=== PATIENT | male | born 1985 | race Caucasian/White ===

== ENCOUNTER 2017-09-09 08:44 | Emergency (ER) | payer BC, OTHER ==
[2017-09-09] MEDS ORDERED: Sodium Chloride 0.9% 10 ML Syringe FLUSH PRN (09:00)
[2017-09-09] MEDS ORDERED: Sodium Chloride 0.9% 2.5 ML Syringe FLUSH PRN (09:00)
[2017-09-09] MEDS ORDERED: Sodium Chloride 0.9% 1,000 ML IV ONE (09:00)
--- NOTE | 2017-09-09 09:09 | EDM.PDOC ---
ED HPI GENERAL MEDICAL PROBLEM - General Chief Complaint: Abdominal Pain Stated Complaint: LOWER ABD PAIN Time Seen by Provider: 09/09/17 08:59 Source of Information: Reports: Patient History Limitations: Reports: No Limitations - History of Present Illness INITIAL COMMENTS - FREE TEXT/NARRATIVE: History of present illness: []Patient developed right lower quadrant pain suddenly around 4 this morning. There is mild radiation into his groin and testicle. At 6:00 this morning became more severe and he broke out into a sweat. Pain now as a dull ache in the right lower quadrant. He denies any flank pain fevers, nausea, vomiting but notes mild loose stools and chills. Patient drank 4 ounces of red bull on his way to work this morning. Patient notes that pain is not related to any position as he has not been able to get comfortable Review of systems: As per history of present illness and below otherwise all systems reviewed and negative. Past medical history: As per history of present illness and as reviewed below otherwise noncontributory. Surgical history: As per history of present illness and as reviewed below otherwise noncontributory. Social history: No reported history of drug or alcohol abuse. Family history: As per history of present illness and as reviewed below otherwise noncontributory. Physical exam: General: Well developed, well nourished in NAD HEENT: Atraumatic, normocephalic, pupils reactive, negative for conjunctival pallor or scleral icterus, mucous membranes moist, throat clear, neck supple, nontender, trachea midline. Lungs: Clear to auscultation, breath sounds equal bilaterally, chest nontender. Heart: S1S2, regular, negative for clicks, rubs, or JVD. Abdomen: Soft, nondistended, nontender. Negative for masses or hepatosplenomegaly. Negative for costovertebral tenderness. Pelvis: Stable nontender. Genitourinary: Deferred. Rectal: Deferred. Extremities: Atraumatic, negative for cords or calf pain. Neurovascular unremarkable. Neuro: Awake, alert, oriented. Cranial nerves II through XII unremarkable. Cerebellum unremarkable. Motor and sensory unremarkable throughout. Exam nonfocal. Diagnostics: []WBC count is elevated at 19,000. Chemistries normal, UA shows 10-12 RBCs, CT shows 5 mm stone in distal right ureter with mild dilatation the collecting system. Therapeutics: []IV hydrated, Flomax Impression: []Right ureterolithiasis Plan: []Flomax, ibuprofen, increase fluids follow-up with primary care as needed Definitive disposition and diagnosis as appropriate pending reevaluation and review of above. Right Lower Abdominal Pain Score (Numeric/FACES): 4 - Related Data Allergies Allergy/AdvReac Type Severity Reaction Status Date / Time No Known Allergies Allergy Verified 09/09/17 08:56 Home Meds: Home Meds Tamsulosin HCl [Flomax] 0.4 mg PO DAILY #14 cap.er.24h 09/09/17 [Rx] ED ROS GENERAL - Review of Systems Review Of Systems: See Below (See history of present illness) ED EXAM, GI/ABD - Physical Exam Exam: See Below (See history of present illness) Course - Vital Signs Last Recorded V/S: Last Vital Signs Temp 97.7 F 09/09/17 10:27 Pulse 82 09/09/17 10:27 Resp 16 09/09/17 10:27 BP 130/69 09/09/17 10:27 Pulse Ox 97 09/09/17 10:27 - Orders/Labs/Meds Orders: Active Orders 24 hr Category Date Time Status NPO Now [Nothing per Oral Now Diet] [DIET] Diet 09/09/17 Lunch Active Abdomen Pelvis w Cont [CT] Stat Exams 09/09/17 09:34 Taken UA W/MICROSCOPIC [URIN] Stat Lab 09/09/17 10:30 Ordered Sodium Chloride 0.9% [Saline Flush] Med 09/09/17 09:00 Active 10 ml FLUSH ASDIRECTED PRN Sodium Chloride 0.9% [Saline Flush] Med 09/09/17 09:00 Active 2.5 ml FLUSH ASDIRECTED PRN Saline Lock Insert [OM.PC] Stat Oth 09/09/17 09:00 Ordered Medication Orders Sodium Chloride (Saline Flush) 10 ml FLUSH ASDIRECTED PRN PRN Reason: Keep Vein Open Sodium Chloride (Saline Flush) 2.5 ml FLUSH ASDIRECTED PRN PRN Reason: Keep Vein Open Labs: Laboratory Tests 09/09/17 09/09/17 09/09/17 Range/Units 09:09 09:09 10:30 WBC 19.36 H (4.0-11.0) K/uL RBC 5.81 (4.50-5.90) M/uL Hgb 18.6 H (13.0-17.0) g/dL Hct 50.9 H (38.0-50.0) % MCV 87.6 (80.0-98.0) fL MCH 32.0 (27.0-32.0) pg MCHC 36.5 (31.0-37.0) g/dL RDW Std Deviation 46.7 (28.0-62.0) fl RDW Coeff of Claudine 15 (11.0-15.0) % Plt Count 312 (150-400) K/uL MPV 9.20 (7.40-12.00) fL Add Manual Diff YES Neutrophils % (Manual) 78 (48.0-80.0) % Band Neutrophils % 3 % Lymphocytes % (Manual) 12 L (16.0-40.0) % Monocytes % (Manual) 7 (0.0-15.0) % Nucleated RBC % 0.0 /100WBC Absolute Seg Neuts 15.1 H (1.4-5.7) Band Neutrophils # 0.6 Lymphocytes # (Manual) 2.3 (0.6-2.4) Monocytes # (Manual) 1.4 H (0.0-0.8) Nucleated RBCs # 0 K/uL Sodium 136 (136-148) mmol/L Potassium 3.6 (3.5-5.1) mmol/L Chloride 99 (98-107) mmol/L Carbon Dioxide 27.0 (21.0-32.0) mmol/L BUN 15 (7.0-18.0) mg/dL Creatinine 1.3 (0.8-1.3) mg/dL Est Cr Clr Drug Dosing 88.49 mL/min Estimated GFR (MDRD) > 60.0 ml/min Glucose 110 H (74-106) mg/dL Calcium 9.7 (8.5-10.1) mg/dL Total Bilirubin 0.9 (0.2-1.0) mg/dL AST 33 (15-37) IU/L ALT 54 (14-63) IU/L Alkaline Phosphatase 111 (46-116) U/L Total Protein 8.8 H (6.4-8.2) g/dL Albumin 4.4 (3.4-5.0) g/dL Globulin 4.4 H (2.0-3.5) g/dL Albumin/Globulin Ratio 1.0 L (1.3-2.8) Lipase 111 (73-393) U/L Urine Color YELLOW Urine Appearance CLEAR Urine pH 6.0 (5.0-8.0) Ur Specific [place] 1.010 (1.001-1.035) Urine Protein NEGATIVE (NEGATIVE) mg/dL Urine Glucose (UA) NEGATIVE (NEGATIVE) mg/dL Urine Ketones TRACE H (NEGATIVE) mg/dL Urine Occult Blood LARGE H (NEGATIVE) Urine Nitrite NEGATIVE (NEGATIVE) Urine Bilirubin NEGATIVE (NEGATIVE) Urine Urobilinogen 0.2 (<2.0) EU/dL Ur Leukocyte Esterase NEGATIVE (NEGATIVE) Urine RBC 10-12 (0-2/HPF) Urine WBC 0-2 (0-5/HPF) Ur Epithelial Cells RARE (NONE-FEW) Urine Bacteria RARE (NEGATIVE) Meds: Medications Generic Name Dose Route Start Last Admin Trade Name Freq PRN Reason Stop Dose Admin Sodium Chloride 10 ml 09/09/17 09:00 Saline Flush FLUSH ASDIRECTED PRN Keep Vein Open Sodium Chloride 2.5 ml 09/09/17 09:00 Saline Flush FLUSH ASDIRECTED PRN Keep Vein Open Discontinued Medications Generic Name Dose Route Start Last Admin Trade Name Freq PRN Reason Stop Dose Admin Sodium Chloride 1,000 mls @ 999 mls/hr 09/09/17 09:00 09/09/17 09:12 Normal Saline IV 09/09/17 10:00 999 mls/hr .Bolus ONE Administration Iopamidol 100 ml 09/09/17 10:21 09/09/17 10:22 Isovue Multipack-370 (76%) IVPUSH 09/09/17 10:22 100 ml ONETIME STA Administration Tamsulosin HCl 0.4 mg 09/09/17 11:04 Flomax PO 09/09/17 11:05 ONETIME ONE Departure - Departure Time of Disposition: 11:08 Disposition: Home, Self-Care 01 Condition: Good Clinical Impression: Ureterolithiasis - Discharge Information Prescriptions: Tamsulosin HCl [Flomax] 0.4 mg PO DAILY #14 cap.er.24h Referrals: PCP,None [Primary Care Provider] - Forms: ED Department Discharge Additional Instructions: The following information is given to patients seen in the emergency department who are being discharged to home. This information is to outline your options for follow-up care. We provide all patients seen in our emergency department with a follow-up referral. The need for follow-up, as well as the timing and circumstances, are variable depending upon the specifics of your emergency department visit. If you don't have a primary care physician on staff, we will provide you with a referral. We always advise you to contact your personal physician following an emergency department visit to inform them of the circumstance of the visit and for follow-up with them and/or the need for any referrals to a consulting specialist. The emergency department will also refer you to a specialist when appropriate. This referral assures that you have the opportunity for follow-up care with a specialist. All of these measure are taken in an effort to provide you with optimal care, which includes your follow-up. Under all circumstances we always encourage you to contact your private physician who remains a resource for coordinating your care. When calling for follow-up care, please make the office aware that this follow-up is from your recent emergency room visit. If for any reason you are refused follow-up, please contact the [facility] Emergency Department at and asked to speak to the emergency department charge nurse. Increase fluids, ibuprofen for pain, Flomax as directed and return if symptoms worsen or change follow-up with primary care as needed. [facility] [address] [place] [id number] - My Orders Last 24 Hours: My Active Orders 09/09/17 09:00 Sodium Chloride 0.9% [Saline Flush] 10 ml FLUSH ASDIRECTED PRN Sodium Chloride 0.9% [Saline Flush] 2.5 ml FLUSH ASDIRECTED PRN Saline Lock Insert [OM.PC] Stat 09/09/17 09:34 Abdomen Pelvis w Cont [CT] Stat 09/09/17 10:30 UA W/MICROSCOPIC [URIN] Stat 09/09/17 Lunch NPO Now [Nothing per Oral Now Diet] [DIET] - Assessment/Plan Last 24 Hours: My Active Orders 09/09/17 09:00 Sodium Chloride 0.9% [Saline Flush] 10 ml FLUSH ASDIRECTED PRN Sodium Chloride 0.9% [Saline Flush] 2.5 ml FLUSH ASDIRECTED PRN Saline Lock Insert [OM.PC] Stat 09/09/17 09:34 Abdomen Pelvis w Cont [CT] Stat 09/09/17 10:30 UA W/MICROSCOPIC [URIN] Stat 09/09/17 Lunch NPO Now [Nothing per Oral Now Diet] [DIET]
[2017-09-09 09:43] LABS: CHLORIDE,CL 99 mmol/L (98-107); SODIUM,NA 136 mmol/L (136-148)
[2017-09-09] MEDS ORDERED: Iopamidol 755 MG/ML 500 ML Multipack Bottle IVPUSH STA (10:21)
[2017-09-09] MEDS ORDERED: Tamsulosin 0.4 MG Cap.ER PO ONE (11:04)
--- NOTE | 2017-09-10 17:23 | CT ---
EXAM DATE: 09/09/17 PATIENT'S AGE: 32 Patient: YONG LATHAM Facility: [place], [place] Site . Site : 1985 Study: CT Abdomen/Pelvis [id number]/15/2018 10:20:43 AM Ordering Physician: Celestine Cagle Final Report: INDICATION: Right lower quadrant pain. TECHNIQUE: Volumetric CT acquisition of the abdomen and pelvis following the administration of 100 mL Isovue-370 intravenous contrast. Multiplanar reconstruction. FINDINGS: Bandlike atelectasis at the lung bases. The liver, spleen, pancreas, adrenal glands, gallbladder, and biliary tract are unremarkable. Kidneys normal in size , shape, and position. Both kidneys are functioning. No renal masses or focal parenchymal abnormalities. Mild dilatation of the right renal collecting system and right ureter due to a 5 millimeter stone in the distal right ureter. This stone is approximately 3 centimeters from the ureterovesical junction. No left- sided hydronephrosis or left-sided stones. Abdominal aorta normal in caliber. No paraaortic or retrocrural lymphadenopathy. Normal bowel gas pattern. No inflammatory changes involving the bowel. Normal appendix. The urinary bladder has a smooth contour. The fat planes surrounding the bladder, rectum, and prostate are maintained. No free fluid in the abdomen or pelvis. No acute bony abnormality. IMPRESSION 5 millimeter stone in the distal right ureter causes mild dilatation of the right ureter and intrarenal collecting system. Please note that all CT scans at this facility use dose modulation, iterative reconstruction, and/or weight-based dosing when appropriate to reduce radiation dose to as low as reasonably achievable. Dictated by Miya Nugent MD @ Sep 09 2017 10:52AM (Electronic Signature) MTDD
== END 2017-09-09 11:32 | disposition home or self-care (01) ==
LOC: MW.ED 08:44
DX: N20.1 Calculus of ureter (principal)
CPT/HCPCS: 36415; 74177; 80053; 81001; 83690; 85025; 96360; 99284; A9270; J7040; Q9967

== ENCOUNTER 2017-09-13 08:15 | Emergency (ER) | payer BC ==
[2017-09-13] MEDS ORDERED: Ketorolac 30 MG/ML SDV IVPUSH ONE (08:41)
[2017-09-13] MEDS ORDERED: Ondansetron 4 MG/2 ML SDV IVPUSH ONE (08:41)
[2017-09-13] MEDS ORDERED: Sodium Chloride 0.9% 10 ML Syringe FLUSH PRN (08:41)
[2017-09-13] MEDS ORDERED: HYDROmorphone 2 MG/ML SDV IVPUSH STA (08:41)
[2017-09-13] MEDS ORDERED: Sodium Chloride 0.9% 2.5 ML Syringe FLUSH PRN (08:41)
[2017-09-13] MEDS ORDERED: HYDROmorphone 1 MG/ML Syringe IVPUSH STA (08:49)
[2017-09-13] MEDS ORDERED: Sodium Chloride 0.9% 1,000 ML IV ONE (08:55)
[2017-09-13] MEDS ORDERED: HYDROmorphone 2 MG/ML Syringe IVPUSH ONE (09:15)
--- NOTE | 2017-09-13 09:17 | EDM.PDOC ---
ED HPI GENERAL MEDICAL PROBLEM - General Chief Complaint: Abdominal Pain Stated Complaint: LEFT SIDE ABDOMINAL PAIN Time Seen by Provider: 09/13/17 08:33 Source of Information: Reports: Patient History Limitations: Reports: No Limitations - History of Present Illness INITIAL COMMENTS - FREE TEXT/NARRATIVE: History of present illness: []Patient was diagnosed with a 5 mm UVJ stone on 09/09 without obstruction or hydronephrosis. At 6 AM this morning he started feeling worsening pain, he tried to drink fluids but vomited. Pain has continually been worsening. Review of systems: As per history of present illness and below otherwise all systems reviewed and negative. Past medical history: As per history of present illness and as reviewed below otherwise noncontributory. Surgical history: As per history of present illness and as reviewed below otherwise noncontributory. Social history: No reported history of drug or alcohol abuse. Family history: As per history of present illness and as reviewed below otherwise noncontributory. Physical exam: General: Well developed, well nourished in severe painful distress HEENT: Atraumatic, normocephalic, pupils reactive, negative for conjunctival pallor or scleral icterus, mucous membranes moist, throat clear, neck supple, nontender, trachea midline. Lungs: Clear to auscultation, breath sounds equal bilaterally, chest nontender. Heart: S1S2, regular, negative for clicks, rubs, or JVD. Abdomen: Soft, nondistended, nontender. Negative for masses or hepatosplenomegaly. Negative for costovertebral tenderness. Pelvis: Stable nontender. Genitourinary: Deferred. Rectal: Deferred. Extremities: Atraumatic, negative for cords or calf pain. Neurovascular unremarkable. Neuro: Awake, alert, oriented. Cranial nerves II through XII unremarkable. Cerebellum unremarkable. Motor and sensory unremarkable throughout. Exam nonfocal. Diagnostics: []CBC normal chemistry normal Therapeutics: []IV fluid, Dilaudid, Toradol with relief of pain Impression: []Ureteral lithiasis Plan: []Tramadol, Motrin for pain increase fluids continue Flomax. Follow up with urology Definitive disposition and diagnosis as appropriate pending reevaluation and review of above. Right Flank Pain Score (Numeric/FACES): 10 - Related Data Allergies Allergy/AdvReac Type Severity Reaction Status Date / Time No Known Allergies Allergy Verified 09/13/17 08:34 Home Meds: Home Meds Tamsulosin HCl [Flomax] 1 tab PO DAILY 09/13/17 [History] traMADol HCl [Tramadol HCl] 50 mg PO Q6H PRN #16 tablet 09/13/17 [Rx] Past Medical History - Past Health History Medical/Surgical History: Denies Medical/Surgical History - Infectious Disease History Infectious Disease History: Reports: Chicken Pox Social & Family History - Family History Family Medical History: Noncontributory - Tobacco Use Smoking Status *Q: Current Every Day Smoker Years of Tobacco use: 6 Packs/Tins Daily: 1 Used Tobacco, but Quit: No Second Hand Smoke Exposure: Yes - Caffeine Use Caffeine Use: Reports: Energy Drinks - Alcohol Use Days Per Week of Alcohol Use: 3 Number of Drinks Per Day: 3 Total Drinks Per Week: 9 - Recreational Drug Use Recreational Drug Use: No ED ROS GENERAL - Review of Systems Review Of Systems: ROS reveals no pertinent complaints other than HPI. ED EXAM, RENAL/ - Physical Exam Exam: See Below (History of present illness) Course - Vital Signs Last Recorded V/S: Last Vital Signs Temp 98.7 F 09/13/17 08:35 Pulse 63 09/13/17 08:35 Resp 19 09/13/17 08:35 BP 137/78 09/13/17 08:35 Pulse Ox 99 09/13/17 08:35 - Orders/Labs/Meds Orders: Active Orders 24 hr Category Date Time Status Sodium Chloride 0.9% [Saline Flush] Med 09/13/17 08:41 Active 10 ml FLUSH ASDIRECTED PRN Sodium Chloride 0.9% [Saline Flush] Med 09/13/17 08:41 Active 2.5 ml FLUSH ASDIRECTED PRN Saline Lock Insert [OM.PC] Stat Oth 09/13/17 08:41 Ordered Medication Orders Sodium Chloride (Saline Flush) 10 ml FLUSH ASDIRECTED PRN PRN Reason: Keep Vein Open Last Admin: 09/13/17 08:54 Dose: 10 ml Sodium Chloride (Saline Flush) 2.5 ml FLUSH ASDIRECTED PRN PRN Reason: Keep Vein Open Last Admin: 09/13/17 08:54 Dose: 2.5 ml Labs: Laboratory Tests 09/13/17 09/13/17 Range/Units 08:45 09:31 WBC 10.32 (4.0-11.0) K/uL RBC 5.69 (4.50-5.90) M/uL Hgb 17.4 H (13.0-17.0) g/dL Hct 49.3 (38.0-50.0) % MCV 86.6 (80.0-98.0) fL MCH 30.6 (27.0-32.0) pg MCHC 35.3 (31.0-37.0) g/dL RDW Std Deviation 45.4 (28.0-62.0) fl RDW Coeff of Claudine 15 (11.0-15.0) % Plt Count 298 (150-400) K/uL MPV 9.50 (7.40-12.00) fL Neut % (Auto) 61.7 (48.0-80.0) % Lymph % (Auto) 24.3 (16.0-40.0) % Coal % (Auto) 10.9 (0.0-15.0) % Eos % (Auto) 2.7 (0.0-7.0) % Baso % (Auto) 0.4 (0.0-1.5) % Neut # (Auto) 6.4 H (1.4-5.7) K/uL Lymph # (Auto) 2.5 H (0.6-2.4) K/uL Coal # (Auto) 1.1 H (0.0-0.8) K/uL Eos # (Auto) 0.3 (0.0-0.7) K/uL Baso # (Auto) 0.0 (0.0-0.1) K/uL Nucleated RBC % 0.0 /100WBC Nucleated RBCs # 0 K/uL Sodium 137 (136-148) mmol/L Potassium 3.7 (3.5-5.1) mmol/L Chloride 104 (98-107) mmol/L Carbon Dioxide 25.8 (21.0-32.0) mmol/L BUN 4 L (7.0-18.0) mg/dL Creatinine 1.2 (0.8-1.3) mg/dL Est Cr Clr Drug Dosing 95.87 mL/min Estimated GFR (MDRD) > 60.0 ml/min Glucose 110 H (74-106) mg/dL Calcium 8.3 L (8.5-10.1) mg/dL Meds: Medications Generic Name Dose Route Start Last Admin Trade Name Freq PRN Reason Stop Dose Admin Sodium Chloride 10 ml 09/13/17 08:41 09/13/17 08:54 Saline Flush FLUSH 10 ml ASDIRECTED PRN Administration Keep Vein Open Sodium Chloride 2.5 ml 09/13/17 08:41 09/13/17 08:54 Saline Flush FLUSH 2.5 ml ASDIRECTED PRN Administration Keep Vein Open Discontinued Medications Generic Name Dose Route Start Last Admin Trade Name Caseyq PRN Reason Stop Dose Admin Hydromorphone HCl 0.5 mg 09/13/17 08:41 09/13/17 08:54 Dilaudid IVPUSH 09/13/17 08:42 Not Given ONETIME STA Hydromorphone HCl 0.5 mg 09/13/17 08:49 09/13/17 08:53 Dilaudid IVPUSH 09/13/17 08:50 0.5 mg ONETIME STA Administration Hydromorphone HCl 0.5 mg 09/13/17 09:15 09/13/17 09:22 Dilaudid IVPUSH 09/13/17 09:16 Not Given ONETIME ONE Hydromorphone HCl 0.5 mg 09/13/17 09:20 09/13/17 09:23 Dilaudid IVPUSH 09/13/17 09:21 0.5 mg ONETIME ONE Administration Sodium Chloride 1,000 mls @ 999 mls/hr 09/13/17 08:55 09/13/17 08:55 Normal Saline IV 09/13/17 09:55 999 mls/hr .Bolus ONE Administration Ketorolac Tromethamine 30 mg 09/13/17 08:41 09/13/17 08:53 Toradol IVPUSH 09/13/17 08:42 30 mg ONETIME ONE Administration Ondansetron HCl 4 mg 09/13/17 08:41 09/13/17 08:53 Zofran IVPUSH 09/13/17 08:42 4 mg ONETIME ONE Administration Departure - Departure Time of Disposition: 10:23 Disposition: Home, Self-Care 01 Condition: Good Clinical Impression: Ureterolithiasis - Discharge Information *PRESCRIPTION DRUG MONITORING PROGRAM REVIEWED*: Not Applicable Prescriptions: traMADol HCl [Tramadol HCl] 50 mg PO Q6H PRN #16 tablet PRN Reason: Pain Referrals: PCP,None [Primary Care Provider] - Rodo Charles MD [Physician] - (Next available) Forms: ED Department Discharge Additional Instructions: The following information is given to patients seen in the emergency department who are being discharged to home. This information is to outline your options for follow-up care. We provide all patients seen in our emergency department with a follow-up referral. The need for follow-up, as well as the timing and circumstances, are variable depending upon the specifics of your emergency department visit. If you don't have a primary care physician on staff, we will provide you with a referral. We always advise you to contact your personal physician following an emergency department visit to inform them of the circumstance of the visit and for follow-up with them and/or the need for any referrals to a consulting specialist. The emergency department will also refer you to a specialist when appropriate. This referral assures that you have the opportunity for follow-up care with a specialist. All of these measure are taken in an effort to provide you with optimal care, which includes your follow-up. Under all circumstances we always encourage you to contact your private physician who remains a resource for coordinating your care. When calling for follow-up care, please make the office aware that this follow-up is from your recent emergency room visit. If for any reason you are refused follow-up, please contact the [facility] Emergency Department at and asked to speak to the emergency department charge nurse. [facility]ty [facility] - Urology [address] [place] [id number] - My Orders Last 24 Hours: My Active Orders 09/13/17 08:41 Sodium Chloride 0.9% [Saline Flush] 10 ml FLUSH ASDIRECTED PRN Sodium Chloride 0.9% [Saline Flush] 2.5 ml FLUSH ASDIRECTED PRN Saline Lock Insert [OM.PC] Stat - Assessment/Plan Last 24 Hours: My Active Orders 09/13/17 08:41 Sodium Chloride 0.9% [Saline Flush] 10 ml FLUSH ASDIRECTED PRN Sodium Chloride 0.9% [Saline Flush] 2.5 ml FLUSH ASDIRECTED PRN Saline Lock Insert [OM.PC] Stat
[2017-09-13] MEDS ORDERED: HYDROmorphone 1 MG/ML Syringe IVPUSH ONE (09:20)
[2017-09-13 09:57] LABS: CHLORIDE,CL 104 mmol/L (98-107); SODIUM,NA 137 mmol/L (136-148)
== END 2017-09-13 10:35 | disposition home or self-care (01) ==
LOC: MW.ED 08:15
DX: N20.1 Calculus of ureter (principal); F17.210 Nicotine dependence, cigarettes, uncomplicated
CPT/HCPCS: 36415; 80048; 85025; 96361; 96374; 96375; 99284; J1170; J1885; J2405; J7040; 99283